=== PATIENT | female | born 1980 | race Caucasian/White ===

== ENCOUNTER → 2022-07-24 23:31 | Outpatient (CLI) | payer BC, SELFPAY | PROVIDERS: PCP Student in an Organized Health Care Education/Training Program; Visit Provider Student in an Organized Health Care Education/Training Program | DX: N39.0 Urinary tract infection, site not specified (principal); B95.2 Enterococcus as the cause of diseases classified elsewhere | CPT/HCPCS: 87086; 87088; 87186 ==

== ENCOUNTER → 2022-08-22 10:49 | Outpatient (CLI) | payer BC, SELFPAY | PROVIDERS: PCP Student in an Organized Health Care Education/Training Program; Visit Provider Student in an Organized Health Care Education/Training Program | DX: N39.0 Urinary tract infection, site not specified (principal) | CPT/HCPCS: 87086 ==

== ENCOUNTER 2023-06-18 21:20 | Outpatient (CLI) | payer BC, SELFPAY ==
[2023-06-18 18:39] LABS: HCG Qualitative, Serum Negative (Negative)
[2023-06-18 18:41] LABS: Basophils % 0.4 % (0.1-2.0); Eosinophils # 0.2 K/mm3 (0.0-0.4); Hematocrit 41.4 % (37.0-47.0); Hemoglobin 13.7 g/dL (12.2-16.2); Lymphocytes # 1.8 K/mm3 (0.7-4.5); Lymphocytes % 31.5 % (10-50); Mean Corpuscular HGB Conc 33.2 g/dL (31.8-35.4); Mean Corpuscular Volume 87.5 fl (81-99); Mean Platelet Volume 10.6 fl (7.4-10.4); Monocytes # 0.6 K/mm3 (0.1-1.0); Monocytes % 10.4 % (1.7-9.3); Neutrophils # 3.2 K/mm3 (1.8-7.8); Neutrophils % 54.8 % (37.0-80.0); Platelet Count 214 K/mm3 (142-424); Red Blood Count 4.73 M/mm3 (4.20-5.40); White Blood Count 5.8 K/mm3 (4.8-10.8)
[2023-06-18 18:45] LABS: Alanine Aminotransferase 45 U/L (12-78); Albumin Level 3.8 g/dl (3.5-5.0); Albumin/Globulin Ratio 1.3 (1.1-1.8); Alkaline Phosphatase 68 U/L (38-126); Anion Gap 10.3 mEq/L (5-15); Aspartate Amino Transferase 39 U/L (14-36); Bilirubin,Total 0.4 mg/dl (0.2-1.3); Blood Urea Nitrogen 14 mg/dl (7-17); Calcium 9.5 mg/dl (8.4-10.2); Carbon Dioxide 22 mmol/L (22.0-30.0); Chloride 110 mmol/L (98-107); Chol/HDL Ratio 3.6 (1-3.5); Cholesterol 147 mg/dl (140-200); Estimated Glomerular Filt Rate 135 ml/min (>60); GFR (African American) 163 ML/MIN (>60); Glucose 101 mg/dl (74-100); HDL Cholesterol 41 mg/dl (40-60); Potassium 4.3 mmoL/L (3.5-5.1); Sodium 138 mmol/L (136-145); Total Protein,Serum 6.8 g/dl (6.3-8.2); Triglycerides 78 mg/dl (30-150); VLDL Cholesterol 16 mg/dL (0-40)
[2023-06-18 18:57] LABS: Direct LDL Cholesterol 83.08 mg/dL (100-129)
[2023-06-18 19:04] LABS: 25-OH Vitamin D, Total 15.6 ng/mL (30-100)
[2023-06-18 19:06] LABS: Free Thyroxine Index 10.2 ug/dL (5.93-13.13); Hemoglobin A1C 5.1 % (4.0-6.0); T4 (Thyroxine) 18.6 ug/dl (5.53-11.0); Triiodothryronine (T3) Uptake 55 % (23.5-40.5)
[2023-06-18 19:19] LABS: Thyroid Stimulating Hormone < 0.02 uIU/mL (0.465-4.68)
== END 2023-06-18 23:59 ==
LOC: LAB.DROPOF 21:20
PROVIDERS: PCP Student in an Organized Health Care Education/Training Program; Visit Provider Student in an Organized Health Care Education/Training Program
DX: E01.0 Iodine-deficiency related diffuse (endemic) goiter (principal); R23.2 Flushing; R53.83 Other fatigue; R25.1 Tremor, unspecified; E55.9 Vitamin D deficiency, unspecified; Z68.1 Body mass index [BMI] 19.9 or less, adult
CPT/HCPCS: 80053; 80061; 82306; 83036; 84436; 84443; 84479; 84703; 85025

== ENCOUNTER 2023-06-23 15:19 | Outpatient (CLI) | payer BC, SELFPAY ==
--- NOTE | 2023-06-23 15:19 | US_ITS ---
FINAL REPORT CLINICAL HISTORY: thyromegaly COMPARISON: None FINDINGS: THYROID ULTRASOUND: The right lobe of the thyroid measures 4.3 x 2 x 2.5 cm in size. There are 2 nodules present in the right lobe of the thyroid gland. The first measures 5 x 4 x 2 mm in size, is solid, hypoechoic, a TI-RADS category 3 nodule. A second nodule measures 6 x 10 x 5 mm in size, is also solid, hyperechoic, a TI-RADS category 3 nodule. The left lobe of the thyroid measures 4.7 x 2 x 1.9 cm in size. A nodule is present in the left lobe of the thyroid, 7 x 6 x 4 mm in size, solid, hyperechoic, also a TI-RADS category 3 nodule. The isthmus of the thyroid measures 5 mm in thickness. IMPRESSION: There are 3 thyroid nodules seen, which are all subcentimeter and TI-RADS category 3 nodules. According to TI-RADS criteria, these do not require follow-up at this time. Reviewed, Interpreted and Dictated by Carlito Johnson III, MD Transcribed by Conchita Olivares Authenticated and [facility]
== END 2023-06-23 23:59 ==
LOC: RAD 15:19
PROVIDERS: PCP Student in an Organized Health Care Education/Training Program; Visit Provider Student in an Organized Health Care Education/Training Program
DX: E01.0 Iodine-deficiency related diffuse (endemic) goiter (principal)
CPT/HCPCS: 76536

== ENCOUNTER 2023-07-22 20:56 | Outpatient (CLI) | payer BC, SELFPAY ==
[2023-07-22 19:10] LABS: Barbiturates Screen,Urine Negative ng/ml (<200); Benzodiazepines Screen,Urine Negative ng/ml (<200)
[2023-07-22 19:11] LABS: Cannabinoid Screen,Urine Negative ng/ml (<50)
[2023-07-22 19:12] LABS: Cocaine Screen,Urine Negative ng/ml (<300); Methadone Screen,Urine Negative ng/ml (<300)
[2023-07-22 19:13] LABS: Opiate Screen,Urine Negative ng/ml (<300)
[2023-07-22 19:31] LABS: Amphetamine/Metha Screen,Urine Negative ng/ml (<1000)
[2023-07-22 19:34] LABS: Phencyclidine Screen,Urine Negative ng/ml (<25)
== END 2023-07-22 23:59 ==
LOC: LAB.DROPOF 20:56
PROVIDERS: PCP Nurse Practitioner Acute Care; Visit Provider Nurse Practitioner Acute Care
DX: Z79.899 Other long term (current) drug therapy (principal)
CPT/HCPCS: 80307

== ENCOUNTER 2023-08-18 16:38 | Outpatient (CLI) | payer BC, SELFPAY ==
[2023-08-18 17:49] LABS: Free T4 (Free Thyroxine) 2.47 ng/dl (0.78-2.19)
[2023-08-18 19:25] LABS: Intact Parathyroid Hormone 25.3 pg/mL (7.5-53.5)
[2023-08-18 19:29] LABS: 25-OH Vitamin D, Total 110 ng/mL (30-100)
[2023-08-18 19:43] LABS: Thyroid Stimulating Hormone < 0.02 uIU/mL (0.465-4.68)
[2023-08-19 09:09] LABS: Thyroid Peroxidase Antibodies 490 IU/mL (0-34); Triiodothyronine (T3) Free 12.2 pg/mL (2.0-4.4)
[2023-08-19 16:36] LABS: Calcium, Ionized 5.1 mg/dL (4.5-5.6); Thyroglobulin Level 72.1 IU/mL (0.0-0.9)
== END 2023-08-18 23:59 ==
LOC: LAB.DROPOF 16:39
PROVIDERS: PCP Nurse Practitioner Family; Visit Provider Nurse Practitioner Family
DX: E04.9 Nontoxic goiter, unspecified (principal); E05.90 Thyrotoxicosis, unspecified without thyrotoxic crisis or storm; R79.89 Other specified abnormal findings of blood chemistry; Z79.899 Other long term (current) drug therapy
CPT/HCPCS: 82306; 82330; 83970; 84436; 84439; 84443; 84481; 86376; 86800

== ENCOUNTER 2023-09-18 11:07 | Outpatient (CLI) | payer BC, SELFPAY ==
[2023-09-18 12:23] LABS: Chloride 110 mmol/L (98-107); Sodium 140 mmol/L (136-145)
[2023-09-18 12:24] LABS: Potassium 4.5 mmoL/L (3.5-5.1)
[2023-09-18 12:26] LABS: Alanine Aminotransferase 21 U/L (12-78); Albumin Level 4.3 g/dl (3.5-5.0); Albumin/Globulin Ratio 1.2 (1.1-1.8); Alkaline Phosphatase 98 U/L (38-126); Anion Gap 10.5 mEq/L (5-15); Aspartate Amino Transferase 39 U/L (14-36); Bilirubin,Total 0.7 mg/dl (0.2-1.3); Blood Urea Nitrogen 12 mg/dl (7-17); Carbon Dioxide 24 mmol/L (22.0-30.0); Estimated Glomerular Filt Rate 109 ml/min (>60); GFR (African American) 132 ML/MIN (>60); Globulin 3.5 g/dL (1.3-3.2); Total Protein,Serum 7.8 g/dl (6.3-8.2)
[2023-09-18 12:27] LABS: Calcium 9.8 mg/dl (8.4-10.2); Glucose 92 mg/dl (74-100)
[2023-09-18 12:44] LABS: 25-OH Vitamin D, Total 58.7 ng/mL (30-100); T4 (Thyroxine) 3.2 ug/dl (5.53-11.0); Triiodothryronine (T3) Uptake 36 % (23.5-40.5)
[2023-09-18 12:45] LABS: Free T4 (Free Thyroxine) 0.44 ng/dl (0.78-2.19)
[2023-09-18 12:58] LABS: Thyroid Stimulating Hormone < 0.02 uIU/mL (0.465-4.68)
[2023-09-19 08:16] LABS: Triiodothyronine (T3) Free 2.6 pg/mL (2.0-4.4)
[2023-09-24 15:29] LABS: Triiodothyronine (T3) Reverse <5.0
== END 2023-09-18 23:59 | disposition home or self-care (01) ==
LOC: LAB 11:07
PROVIDERS: PCP Nurse Practitioner Family; Visit Provider Nurse Practitioner Family
DX: E04.9 Nontoxic goiter, unspecified (principal); E05.90 Thyrotoxicosis, unspecified without thyrotoxic crisis or storm; R79.89 Other specified abnormal findings of blood chemistry; E01.0 Iodine-deficiency related diffuse (endemic) goiter; F41.1 Generalized anxiety disorder
CPT/HCPCS: 36415; 80053; 82306; 84436; 84439; 84443; 84479; 84481; 84482

== ENCOUNTER 2023-10-19 10:04 | Outpatient (CLI) | payer BC, SELFPAY ==
[2023-10-19 17:02] LABS: 25-OH Vitamin D, Total 60.1 ng/mL (30-100); T4 (Thyroxine) 8.5 ug/dl (5.53-11.0)
[2023-10-19 17:03] LABS: Free T4 (Free Thyroxine) 1.47 ng/dl (0.78-2.19)
[2023-10-19 17:16] LABS: Thyroid Stimulating Hormone < 0.02 uIU/mL (0.465-4.68)
[2023-10-19 17:20] LABS: Ferritin 31.9 ng/ml (6.24-137)
[2023-10-21 13:11] LABS: Thyroid Peroxidase Antibodies >600 IU/mL (0-34); Triiodothyronine (T3) Free 8.9 pg/mL (2.0-4.4)
[2023-10-21 16:14] LABS: Thyroglobulin Level 202.3 IU/mL (0.0-0.9)
== END 2023-10-19 23:59 | disposition home or self-care (01) ==
LOC: LAB.DROPOF 10-21 10:04
PROVIDERS: PCP Nurse Practitioner Family; Visit Provider Nurse Practitioner Family
DX: E01.0 Iodine-deficiency related diffuse (endemic) goiter; E05.90 Thyrotoxicosis, unspecified without thyrotoxic crisis or storm; R51.9 Headache, unspecified; R63.0 Anorexia; Z68.1 Body mass index [BMI] 19.9 or less, adult
CPT/HCPCS: 82306; 82728; 84436; 84439; 84443; 84481; 86376; 86800

== ENCOUNTER 2024-01-11 13:06 | Outpatient (CLI) | payer BC, SELFPAY ==
[2024-01-11 13:52] LABS: T4 (Thyroxine) 20.2 ug/dl (5.53-11.0)
[2024-01-11 13:54] LABS: Free T4 (Free Thyroxine) 5.06 ng/dl (0.78-2.19)
[2024-01-11 14:06] LABS: Thyroid Stimulating Hormone < 0.02 uIU/mL (0.465-4.68)
[2024-01-12 08:19] LABS: Thyroid Peroxidase Antibodies 405 IU/mL (0-34); Triiodothyronine (T3) Free 24.4 pg/mL (2.0-4.4)
[2024-01-12 14:27] LABS: Thyroglobulin Level 445.7 IU/mL (0.0-0.9)
== END 2024-01-11 23:59 | disposition home or self-care (01) ==
LOC: LAB.DROPOF 13:07
PROVIDERS: PCP Nurse Practitioner Family; Visit Provider Nurse Practitioner Family
DX: E05.00 Thyrotoxicosis with diffuse goiter without thyrotoxic crisis or storm (principal)
CPT/HCPCS: 84436; 84439; 84443; 84481; 86376; 86800

== ENCOUNTER 2024-02-10 08:33 | Outpatient (CLI) | payer BC, SELFPAY ==
[2024-02-10 10:20] LABS: Free T4 (Free Thyroxine) 0.86 ng/dl (0.78-2.19)
[2024-02-10 10:36] LABS: Thyroid Stimulating Hormone < 0.02 uIU/mL (0.465-4.68)
[2024-02-11 10:15] LABS: Thyroid Peroxidase Antibodies 461 IU/mL (0-34)
[2024-02-11 14:15] LABS: Thyroglobulin Level 471.8 IU/mL (0.0-0.9)
== END 2024-02-10 23:59 | disposition home or self-care (01) ==
LOC: LAB 08:34
PROVIDERS: PCP Nurse Practitioner Family; Visit Provider Nurse Practitioner Family
DX: E05.90 Thyrotoxicosis, unspecified without thyrotoxic crisis or storm (principal)
CPT/HCPCS: 36415; 84439; 84443; 86376; 86800

== ENCOUNTER 2024-05-04 10:14 | Outpatient (CLI) | payer BC, SELFPAY ==
[2024-05-04 11:23] LABS: Free T4 (Free Thyroxine) 0.66 ng/dl (0.78-2.19)
[2024-05-04 11:24] LABS: Triiodothryronine (T3) Uptake 33 % (23.5-40.5)
[2024-05-04 11:25] LABS: T4 (Thyroxine) 4.9 ug/dl (5.53-11.0)
[2024-05-04 11:29] LABS: 25-OH Vitamin D, Total 63.2 ng/mL (30-100)
[2024-05-04 11:38] LABS: Thyroid Stimulating Hormone < 0.02 uIU/mL (0.465-4.68)
[2024-05-05 08:39] LABS: Thyroid Peroxidase Antibodies 401 IU/mL (0-34); Triiodothyronine (T3) Free 7.9 pg/mL (2.0-4.4)
[2024-05-05 14:11] LABS: Thyroglobulin Level 271.9 IU/mL (0.0-0.9)
== END 2024-05-04 23:59 | disposition home or self-care (01) ==
LOC: LAB 10:16
PROVIDERS: PCP Nurse Practitioner Family; Visit Provider Nurse Practitioner Family
DX: E05.00 Thyrotoxicosis with diffuse goiter without thyrotoxic crisis or storm (principal); R79.89 Other specified abnormal findings of blood chemistry; E05.90 Thyrotoxicosis, unspecified without thyrotoxic crisis or storm
CPT/HCPCS: 36415; 82306; 84436; 84439; 84443; 84479; 84481; 86376; 86800

== ENCOUNTER 2024-06-25 09:00 | Emergency (ER) | payer BC, SELFPAY ==
--- NOTE | 2024-06-25 09:12 | XR_ITS ---
PROCEDURE INFORMATION: Exam: XR Right Foot Exam date and time: 06/25/2024 9:09 AM Age: 44 years old Clinical indication: Injury or trauma; Fall; Blunt trauma; Toes; Right TECHNIQUE: Imaging protocol: Radiologic exam of the right foot. Views: 3 or more views. COMPARISON: No relevant prior studies available. FINDINGS: Bones/joints: No ankle joint effusion. No acute fractures. Normal plantar arch. A normal variant accessory navicular bone ossicle is seen on the medial aspect of the foot. A normal variant os vesalianum is seen adjacent to the cuboid bone in the lateral aspect of the foot. Soft tissues: No definite acute soft tissue abnormality identified. IMPRESSION: 1. No definite acute soft tissue abnormality identified. 2. No right ankle joint effusion. 3. No acute fractures. The phalanges of the forefoot are normal. 4. Normal plantar arch. 5. A normal variant accessory navicular bone ossicle is seen on the medial aspect of the foot. 6. A normal variant os vesalianum ossicle is seen adjacent to the cuboid bone in the lateral aspect of the foot.
[2024-06-25 10:26] VITALS: BP 133/73; PULSE 94; RESP 18; TEMP 36.6; O2SAT 97; BMI 20.4
--- NOTE | 2024-06-25 10:32 | EXP.UTC ---
Discharge Plan Disposition Patient Disposition: Home, Self-Care Condition: Good Prescriptions Prescriptions: No Action epinephrine [EpiPen 2-Surendra] 0.3 mg/0.3 mL auto-injector 0.3 mg IM Q5-15M PRN (Reason: anaphylaxis) Qty: 2 0RF Rx Instructions: do not exceed 3 doses per episode propranolol 20 mg tablet 20 mg PO TID Qty: 90 11RF propylthiouracil 50 mg tablet 50 mg PO Q8H Qty: 90 11RF cholecalciferol (vitamin D3) 1,250 mcg (50,000 unit) capsule 1,250 mcg PO WEEKLY Qty: 12 0RF Referrals Follow up/Referrals: Yomaira Trinidad APRN [Primary Care Provider] - See instructions Activity Restrictions/Add. Instructions Additional Instructions/Restrictions: Weight bearing as tolerated rest Ice with cold pack for 20 minutes remove may repeat for comfort every hour Elevate with foot above your heart as much as possible to help reduce swelling and therefore pain Ibuprofen every 6 hours as needed for pain or inflammation. If needs something more you can take Tylenol every 4 hours as needed. Follow-up immediately if new or worsening symptoms or no noticeable improvement over the next 3-5 days. call ortho if no improvement Clinical Impressions Clinical Impression: Sprain of toe, great, right Instructions Patient Instructions: DI for Toe Sprain Print Language Print Language: Uzbek Discharge ED Provider: [facility]man[facility] [facility] General Stated complaint: AO 06/25 fall right foot lack of movement bruising Mode of Arrival: Ambulatory Source of Information: Patient Time Seen by Provider: 06/25/24 10:32 Description of Symptoms (Recalled from Triage Doc. by RN): RIGHT TOE UNABLE TO MOVE AFTER HITTING IT ON STEP HEENT Symptoms (Recalled from RN notes): No Resp Symptoms (Recalled from RN notes): No Skin Symptoms (Recalled from RN notes): No MS Symptoms (Recalled from RN notes): Yes Functional Status (Recalled from RN notes): WNL History of Present Illness Provider Complaint: 44-year-old female presents for right great toe unable to move after hitting it on the steps carrying laundry. Related Data Previous Rx's ?Medication ?Instructions ?Recorded cholecalciferol (vitamin D3) 1,250 1,250 mcg PO WEEKLY #12 caps 06/19/23 mcg (50,000 unit) capsule epinephrine 0.3 mg/0.3 mL 0.3 mg (0.3 mL) IM Q5-15M PRN 07/22/23 injection, auto-injector (EpiPen anaphylaxis #2 ea 2-Surendra) propranolol 20 mg tablet 20 mg PO TID #90 tabs 05/04/24 propylthiouracil 50 mg tablet 50 mg PO Q8H #90 tabs 05/04/24 Allergies Allergy/AdvReac Type Severity Reaction Status Date / Time erythromycin base Allergy Intermediate Rash Verified 05/04/24 09:32 Worker's Comp Is this a Worker's Comp case?: No [facility] Disclaimer: The information contained in this section may have been updated after the patient was seen, as this information can be updated by other users. Medical History , STRATEGIC ACCOUNT EXECUTIVE) Anxiety Thyromegaly Hyperthyroidism Tremor Surgical History , STRATEGIC ACCOUNT EXECUTIVE) Hx of adenoidectomy Hx of tonsillectomy Family History , STRATEGIC ACCOUNT EXECUTIVE) No significant family history Social History , STRATEGIC ACCOUNT EXECUTIVE) Smoking Status: Never smoker alcohol intake: never substance use type: denies use current occupational status: unemployed and other Travel in the last 8 weeks: Inside the [place] household members: family housing: house lives independently: Yes marital status: number of children: 4 service: No residential: No current occupation: Homemaker Have you lived/traveled outside US in past 30 days?: No Contact w/someone who lives/traveled outside US past 30 days?: No Exposure to someone with infectious disease in past 14 days?: No Do you have a fever (greater than 100.4 F or 38 C)?: No Have you tested positive for COVID-19: No Exposed to someone with COVID-19 in past 14 days?: No Do you have a sore throat?: No Do you have a cough?: No Do you have any weakness?: No Do you have any diarrhea?: No Are you experiencing any unusual bleeding?: No Do you have any muscle aches/pain?: No Do you have any abdominal pain?: No Are you experiencing loss of taste or smell?: No ROS Obtained: Yes Systems reviewed as appropriate & no additional complaints except as documented Musculoskeletal Musculoskeletal: Reports system reviewed and no additional complaints, except as documented, Reports as per HPI, Reports limited range of motion and Reports other Integumentary/Breasts Skin/Breast: Reports system reviewed and no additional complaints, except as documented and Reports as per HPI Physical Exam General General appearance: alert and in no apparent distress Respiratory Respiratory exam: Present normal lung sounds bilaterally Cardiovascular Cardiovascular exam: Present regular rate Extremities Exam Extremities exam: Present normal inspection, tenderness (Small bruise just below the nail) and normal capillary refill Neurological Exam Neurological exam: Present alert and oriented X3 Skin Skin exam: Present warm and intact Medical Decision Making Medical Records Medical records reviewed: Yes I reviewed the patient's medical records. Screening: Per USPSTF and CDC recommendations, given the prevalence of disease in our region, it is our hospital?s policy to screen for HIV and viral Hepatitis for all patients aged 18 and over and those with ongoing risk factors. Peter Inquiry Pt receiving controlled substance: No Vital Signs: 06/25/24 10:26 Temperature 98 F Temperature Source Oral Pulse Rate [Left Radial] 94 H Respiratory Rate 18 Blood Pressure [Left Arm] 133/73 Blood Pressure Mean [Left Arm] 93 02 Sat by Pulse Oximetry 97 Orders (Tests/Meds): ORDERS Category Date Time Status XR foot RT min 3V Stat Exams 06/25/24 09:12 Completed Radiology Data #1: Image(s): Foot/Toes Image Reviewed: Yes I have reviewed radiologist's interpretation Preliminary Findings: Normal/NAD
[2024-06-25 10:49] VITALS: BP 133/73; PULSE 94; RESP 18; TEMP 36.6
== END 2024-06-25 10:50 | disposition home or self-care (01) ==
PROVIDERS: Emergency Provider Nurse Practitioner Family; PCP Nurse Practitioner Family
DX: S93.501A Unspecified sprain of right great toe, initial encounter (principal); W22.8XXA Striking against or struck by other objects, initial encounter
CPT/HCPCS: 73630; 99213; G0381

== ENCOUNTER 2024-11-03 10:01 | Outpatient (CLI) | payer BC, SELFPAY ==
--- NOTE | 2024-11-03 10:04 | XR_ITS ---
FINAL REPORT CLINICAL HISTORY: Right Foot Pain swelling, bruise, pain, limited mobility COMPARISON: None FINDINGS: RIGHT FOOT 3 views of the right foot were obtained. There is no acute fracture or dislocation. Visualized joint spaces are normally aligned. Soft tissues are unremarkable. Note is made of 1.6 cm accessory navicular. IMPRESSION: No acute bony abnormality. Reviewed, Interpreted and Dictated by Rocky Campbell MD Transcribed by Conchita Olivares Authenticated and . [facility]
--- OUTSIDE RECORDS SUMMARY | 2024-11-03 10:10 | XMS_ITS | Patient Health Record ---
Author Organization [facility] Address [address] [facility], [address] [id number] Care Team Providers Care Structural Iron Worker Name Role Phone Braden Gonzalez Unavailable [phone] Braden Cota Unavailable Unavailable Reason For Referral No Information Social History Tobacco Use: Social History Observation Description Date Details (start date - stop date) Never Smoker NA - NA Alcohol Question Answer Notes Did you have a drink containing alcohol in the p ast year? No Points 0 Tobacco: Question Answer Notes Are you a: never smoker Additional Findings: Tobacco Non-User Aggressive non-smoker Alcohol Screen Question Answer Notes Interpretation Negative Plan Of Treatment No Information Insurance Providers Payer Name Payer Address Payer Phone Subscriber Number Group Number Insured Name Patient Relationship to Insured Coverage Start Date Coverage End Date [facility] [address] [place] [phone] [id number] aSndra Malin Self - patient is the insured Medical (General) History Medical History History ICD Code Childbirth x 4 Surgical History Surgery Date(Month/Year)
--- OUTSIDE RECORDS SUMMARY | 2024-11-03 10:10 | XMS_ITS | Clinical Summary ---
Author Organization Healthcare Address [address] [place] [address] Care Team Providers Care Tiler'S Assistant Name Role Phone Richa Martinez Primary Care Provider [phone] Allergies Active Allergy Reactions Criticality Noted Date Comments Withania Somnifera Anaphylaxis High 11/12/2023 Erythromycin Base Vomiting Low 10/19/2023 Medications ALPRAZolam (Xanax) 0.25 MG tablet Take 1 tablet (0.25 mg) by mouth at night if needed. 07/22/2023 Active EPINEPHrine (Epipen) 0.3 MG/0.3ML injection syringe Inject 0.3 mL (0.3 mg) as directed 1 (one) time. 07/22/2023 Active ubrogepant (Ubrelvy) 100 MG tablet Take 1 tablet (100 mg) by mouth 1 (one) time if needed. 10/19/2023 Active Family History Medical History Relation Name Comments No Known Problems Brother No Known Problems Father No Known Problems Maternal Grandfather No Known Problems Maternal Grandmother Hepatitis Mother No Known Problems Paternal Grandfather No Known Problems Paternal Grandmother No Known Problems Sister Relation Name Status Comments Brother Father Maternal Grandfather Maternal Grandmother Mother Alive Paternal Grandfather Paternal Grandmother Sister Social History Tobacco Use Types Packs/Day Years Used Date Smoking Tobacco: Never Smokeless Tobacco: Never Tobacco Cessation:Counseling Given: Not Answered Alcohol Use Standard Drinks/Week Comments Never 0 (1 standard drink = 0.6 oz pur e alcohol) Comments No Sex and Gender Information Value Date Recorded Sex Assigned at Not on file Legal Sex Female 11:32 AM EDT Gender Identity Not on file Sexual Orientation Not on file Last Filed Vital Signs Vital Sign Reading Time Taken Comments Blood Pressure 121/83 11/12/2023 10:39 AM EDT Pulse 134 11/12/2023 10:39 AM EDT Temperature - - Respiratory Rate - - Oxygen Saturation - - Inhaled Oxygen Concentration - - Weight 48.9 kg (107 lb 12.9 oz) 024 10:39 AM EDT Height 162.6 cm (5' 4 ) 11/12/2023 10:3 9 AM EDT Body Mass Index 18.5 11/12/2023 10:39 AM EDT Plan of Treatment Health Maintenance Due Date Last Done Comments [facility]-Depression Screening 1980 [facility]-HIV Screening 1980 [facility]-Hepatitis C Screening 1980 [facility]-/Child/Adol SDOH Screenings 1980 [facility]-Varicella Vaccines (1 of 2 - 13+ 2-dose series) 01/01/1993 HPV Vaccines (1 - 3-dose series) 01/01/1995 [facility]- SDOH Screenings 01/01/1998 [facility]-Adult SDOH Screenings 01/01/1998 [facility]-DTaP,Tdap,and Td Vaccine s (1 - Tdap) 01/01/1999 [facility]-Hepatitis B Vaccines (1 of 3 - 19+ 3-dose series) 01/01/1999 [facility]-Pap Smear 01/01/2001 [facility]-Cervical Cancer Screening 01/01/2010 [facility]-HPV/Cotest 01/01/2010 [id number] Vaccine (1 - 20 24-25 season) 2024 [facility]-Influenza Vaccine (Seas[place] n Ended) 2025 [facility]-Zoster Vaccines (1 of 2) 01/01/2030 [facility]-HIB Vaccines Aged Out No longer e ligible based on patient's age to complete this topic [facility]-Hepatitis A Vaccines Aged Out No longer eligible based on patient's age to complete this topic [facility]-IPV Vaccines Aged Out No longer e ligible based on patient's age to complete this topic [facility]-Pneumococcal Vaccine: Pediatrics (0 to 5 Years) and At-Risk Patients (6 to 49 Years) Aged Out No long er eligible based on patient's age to complete this topic [facility]-Rotavirus Vaccines Aged Out No lo nger eligible based on patient's age to complete this topic Insurance ANTHEM Care Teams Tiler'S Assistant Relationship Specialty Start Date End Date Richa Martinez PA [address] [place] [address] PCP - General 07/09/23
== END 2024-11-03 23:59 | disposition home or self-care (01) ==
LOC: RAD 10:02
PROVIDERS: PCP Nurse Practitioner Family; Visit Provider Nurse Practitioner Family
DX: M79.671 Pain in right foot (principal)
CPT/HCPCS: 73630

== ENCOUNTER 2025-01-24 09:47 | Outpatient (CLI) | payer BC, SELFPAY ==
--- OUTSIDE RECORDS SUMMARY | 2025-01-27 09:50 | XMS_ITS | Clinical Summary ---
Author Organization Healthcare Address [address] [place] [address] Care Team Providers Care Shroudman Name Role Phone Richa Martinez Primary Care Provider [phone] Allergies Active Allergy Reactions Criticality Noted Date [...] of 2 - 13+ 2-dose series) 01/01/1993 [facility]- SDOH Screenings 01/01/1998 [facility]-Adult SDOH Screenings 01/01/1998 [facility]-DTaP,Tdap,and Td Vaccine s (1 - Tdap) 01/01/1999 [facility]-Hepatitis B Vaccines (1 of 3 - 19+ 3-dose series) 01/01/1999 [facility]-Pap Smear 01/01/2001 HPV Vaccines (1 - 3-dose SCD M series) 01/01/2007 [facility]-Cervical Cancer Screening 01/01/2010 [facility]-HPV/Cotest 01/01/2010 [id number] Vaccine (1 - 20 24-25 season) 2024 CT Colonography 01/01/2025 Colonoscopy 01/01/2025 FIT-DNA 01/01/2025 FIT 01/01/2025 FOBT 01/01/2025 Sigmoidoscopy 01/01/2025 [facility]-Colorectal Cancer Screening 01/01/2025 [facility]-Influenza Vaccine (#1) 2025 [facility]-Zoster Vaccines (1 of 2) 01/01/2030 [...] patient's age to complete this topic Insurance ANTH Care Teams Shroudman Relationship Specialty Start Date End Date Richa Martinez PA [address] [place] [address] PCP - General 07/09/23
--- OUTSIDE RECORDS SUMMARY | 2025-01-27 09:50 | XMS_ITS | Patient Health Record ---
Author Organization [facility] Address [address] [facility], [address] [id number] Care Team Providers Care Public Relations Senior Associate Name Role Phone Braden Gonzalez Unavailable [phone] Braden Cota Unavailable Unavailable Reason For Referral [...] Insured Coverage Start Date Coverage End Date [facility] [address] [place] [phone] [id number] Sandra Malin Self - patient is the insured Medical (General) History Medical History History ICD Code Childbirth x 4 Surgical History Surgery Date(Month/Year)
== END 2025-01-24 23:59 ==
LOC: LAB.DROPOF 01-27 09:48
PROVIDERS: PCP Nurse Practitioner Family; Visit Provider Nurse Practitioner Family
DX: N76.0 Acute vaginitis (principal); R35.0 Frequency of micturition
CPT/HCPCS: 87070; 87077; 87086; 87205

== ENCOUNTER 2025-01-30 09:08 | Outpatient (CLI) | payer BC, SELFPAY ==
--- OUTSIDE RECORDS SUMMARY | 2025-01-30 09:35 | XMS_ITS | Clinical Summary ---
Author Organization Healthcare Address [address] [place] [address] Care Team Providers Care Tests Superintendent Name Role Phone Richa Martinez Primary Care Provider [phone] Allergies Active Allergy Reactions Criticality Noted Date [...] 01/01/2007 [facility]-Cervical Cancer Screening 01/01/2010 [facility]-HPV/Cotest 01/01/2010 CT Colonography 01/01/2025 Colonoscopy 01/01/2025 FIT-DNA 01/01/2025 FIT 01/01/2025 FOBT 01/01/2025 Sigmoidoscopy 01/01/2025 [facility]-Colorectal Cancer Screening 01/01/2025 [id number] Vaccine ( - 20 24-25 season) 2025 [facility]-Influenza Vaccine (#1) 2025 [facility]-Zoster Vaccines (1 [...] complete this topic Insurance ANTH Care Teams Tests Superintendent Relationship Specialty Start Date End Date Richa Martinez PA [address] [place] [address] PCP - General 07/09/23
--- OUTSIDE RECORDS SUMMARY | 2025-01-30 09:35 | XMS_ITS | Patient Health Record ---
Author Organization [facility] Address [address] [facility], [address] [phone] Care Team Providers Care Underwriting Clerks Supervisor Name Role Phone Braden Gonzalez Unavailable [phone] Braden Cota Unavailable Unavailable Reason For Referral [...] Coverage Start Date Coverage End Date [facility] [address] [place] [phone] [id number] Sandra Malin Self - patient is the insured Medical (General) History Medical History History ICD Code Childbirth x 4 Surgical History Surgery Date(Month/Year)
[2025-01-30 10:42] LABS: Free T4 (Free Thyroxine) 0.91 ng/dl (0.78-2.19)
[2025-01-30 15:33] LABS: T4 (Thyroxine) 6.4 ug/dl (5.53-11.0)
[2025-01-30 15:46] LABS: Thyroid Stimulating Hormone < 0.02 uIU/mL (0.465-4.68)
[2025-01-31 08:13] LABS: Triiodothyronine (T3) Free 5.3 pg/mL (2.0-4.4)
== END 2025-01-30 23:59 | disposition home or self-care (01) ==
LOC: LAB 09:10
PROVIDERS: PCP Nurse Practitioner Family; Visit Provider Nurse Practitioner Family
DX: E05.00 Thyrotoxicosis with diffuse goiter without thyrotoxic crisis or storm (principal)
CPT/HCPCS: 36415; 84436; 84439; 84443; 84481; 86376; 86800